=== PATIENT | male | born 1950 | race Caucasian/White ===

== ENCOUNTER 2017-08-22 06:53 | Day surgery (SDC) | payer MEDICARE, OTHER ==
[2017-08-22 07:03] LABS: HEMATOCRIT 41.5 % (37.9-51.0); HEMOGLOBIN 14.2 g/dL (13.5-17.0); HGB HCT DIFFERENCE 1.1; MEAN CORPUSCULAR HGB CONC 34.2 g/dL (32.0-36.0); MEAN CORPUSCULAR VOLUME 93 fl (80-97); RED BLOOD COUNT 4.44 10^6/uL (4.35-5.55); RED CELL DISTRIBUTION WIDTH 13.9 % (11.5-14.0); WHITE BLOOD COUNT 6.3 10^3/uL (4.0-10.5)
[2017-08-22] MEDS ORDERED: GLYCOPYRROLATE INJ 0.4 MG/2 ML VIAL ONE (07:24)
[2017-08-22] MEDS ORDERED: ONDANSETRON HCL INJ/PF 4 MG/2 ML SDV ONE (07:24)
[2017-08-22] MEDS ORDERED: NALOXONE HCL INJ/PF 0.4 MG/1 ML SDV ONE (07:24)
[2017-08-22] MEDS ORDERED: FLUMAZENIL INJ 0.5 MG/5 ML VIAL ONE (07:26)
[2017-08-22] MEDS ORDERED: EPINEPHRINE INJ 1 MG/10 ML DISP.SYRIN ONE (07:26)
[2017-08-22] MEDS ORDERED: GLUCAGON,HUMAN RECOMB 1 MG INJ ONE (07:26)
[2017-08-22] MEDS: MIDAZOLAM 2 MG/2 ML INJ ONE ×3 (08:43→08:55)
[2017-08-22] MEDS: FENTANYL CITRATE INJ/PF 100 MCG/2 ML AMPUL ONE ×2 (08:45→08:58)
--- NOTE | 2017-08-22 09:21 | Operative Report ---
Operative Report DATE OF SURGERY: 08/22/17 PREOPERATIVE DIAGNOSIS: Screening for colon malignancy POSTOPERATIVE DIAGNOSIS: Normal colon OPERATION: Colonoscopy SURGEON: JULIAN ROBERTS ANESTHESIA: Moderate Sedation TISSUE REMOVED OR ALTERED: None COMPLICATIONS: None ESTIMATED BLOOD LOSS: None INTRAOPERATIVE FINDINGS: None PROCEDURE: Informed consent was obtained. Patient was brought to the endoscopy suite. IV sedation with Versed and fentanyl was administered. Digital rectal exam revealed no palpable perianal masses. Endoscope was passed via the patient's anus it was fed to the cecum. Patient is colon was markedly redundant making the procedure very difficult and visualization difficult however the bowel prep was excellent. The scope was passed multiple times to get adequate visualization. The cecum, right colon, transverse colon, descending colon, sigmoid colon, and the rectum were all normal with no polyps and no masses. Patient tolerated procedure well with no apparent complications. Normal- appearing colon. Recommend repeat colonoscopy in 10 years, sooner if he has any concerning signs or symptoms.
--- NOTE | 2017-08-22 09:23 | PDOC DISCHARGE SUMMARY ---
Discharge Summary (SDC) - Discharge Final Diagnosis: Normal colon Date of Surgery: 08/22/17 Discharge Date: 08/22/17 Condition: Good Treatment or Instructions: Colonoscopy. May be discharged home when met discharge criteria. Follow-up with me in a couple of weeks. Referrals: ARISTIDES DENIS MD [Primary Care Provider] - Discharge Diet: As Tolerated Discharge Activity: Activity As Tolerated Report the Following to Your Physician Immediately: Increase in Pain, Unusual Bleeding
[2017-08-22 10:06] VITALS: BP 120/67
== END 2017-08-22 10:10 | disposition home or self-care (01) ==
LOC: END 06:53
PROVIDERS: ATTEND Surgery
PROC: 0DJD8ZZ Inspection of Lower Intestinal Tract, Via Natural or Artificial Opening Endoscopic (ICD-10-PCS; principal; 2017-08-22 08:15)
DX: Z12.11 Encounter for screening for malignant neoplasm of colon (principal); E11.9 Type 2 diabetes mellitus without complications; Z79.01 Long term (current) use of anticoagulants; Z88.0 Allergy status to penicillin; Z87.891 Personal history of nicotine dependence; Z79.84 Long term (current) use of oral hypoglycemic drugs; Z79.899 Other long term (current) drug therapy; Z79.82 Long term (current) use of aspirin
CPT/HCPCS: 36415; 82962; 85027; G0121; J2250; J3010; J0171; J1610; J2310; J2405; J3490